=== PATIENT | female | born 1945 | race Caucasian/White ===

== ENCOUNTER → 2024-09-28 | Day surgery (SDC) | payer MEDICARE, OTHER ==
[~2024-09-28] VITALS: Ht 160 cm; Wt 59.9 kg
[~2024-09-28] MED LIST: ASPIRIN ADULT L81 M1 PO; Balanced Salt Solution 500 ML OPH SCH; LIPITOR10 MG PO; LOSARTAN POTAS100 M1 PO; MERIBIN5 MG PO; MULTIVITAMIN1 EACH PO; Midazolam Hydrochloride 2 MG/2 ML VIAL IV ONE; OFLOXACIN 0.3% 5 ML BOTTLE ONE; OFLOXACIN 0.3% 5 ML BOTTLE OPH SCH; OMEGA 3 1,0001 EACH PO; PHENYLEPHRINE/KETOROLAC 4 ML in Balanced Salt Solution 500 ML OPH SCH; POVIDONE IODINE 5% OPHTHALMIC 30 ML BOTTLE OPH ONE; POVIDONE IODINE 5% OPHTHALMIC 30 ML BOTTLE OPH SCH; Phenylephrine Hydrochloride 2 ML BOT OPH ONE; Phenylephrine Hydrochloride 2 ML BOT OPH SCH; Proparacaine Hydrochloride 15 ML BOT OPH ONE; Proparacaine Hydrochloride 15 ML BOT OPH SCH; SODIUM CHLORIDE 0.9% 1,000 ML IV SCH; TETRACAINE HCL 10 DROP BOT OPH SCH; TROPICAMIDE 3 ML BOT OPH ONE; TROPICAMIDE 3 ML BOT OPH SCH; Tetracaine Hydrochloride 0.5% 4 ML BOT OPH ONE; Tetracaine Hydrochloride 0.5% 4 ML BOT OPH SCH; prednisoLONE acetate 1% OPHTHALMIC 5 ML BOT OPH ONE; prednisoLONE acetate 1% OPHTHALMIC 5 ML BOT OPH SCH
[2024-09-28 09:05] VITALS: BP 123/84
[2024-09-28 11:00] VITALS: BP 123/66
[2024-09-28 11:15] VITALS: BP 131/69
[2024-09-28 11:30] VITALS: BP 129/67
== END | disposition home or self-care (01) ==
LOC: SDC 09-26 12:30
PROVIDERS: ATTEND Ophthalmology
DX: H25.11 Age-related nuclear cataract, right eye (principal); I10 Essential (primary) hypertension; E78.00 Pure hypercholesterolemia, unspecified; Z88.0 Allergy status to penicillin; Z87.891 Personal history of nicotine dependence; Z79.82 Long term (current) use of aspirin; Z79.899 Other long term (current) drug therapy; Z98.890 Other specified postprocedural states